=== PATIENT | male | born 1950 | race Native Hawaiian/Other Pacific Islander ===

== ENCOUNTER 2017-03-04 13:06 | Outpatient (CLI) | payer OTHER, MEDICARE ==
[2017-03-04 13:55] LABS: POTASSIUM 4.8 mmol/L (3.6-5.2); SODIUM 137 mmol/L (136-145)
== END 2017-03-04 14:10 | disposition home or self-care (01) ==
LOC: LAB 13:06
PROVIDERS: Internal Medicine
DX: I10 Essential (primary) hypertension (principal)
CPT/HCPCS: 80053; 80061

== ENCOUNTER 2017-09-01 09:42 | Outpatient (CLI) | payer OTHER, MEDICARE ==
[2017-09-01 09:49] LABS: PLATELET COUNT 233 K/uL (142-355)
[2017-09-01 10:12] LABS: POTASSIUM 4.3 mmol/L (3.6-5.2)
== END 2017-09-01 19:04 | disposition home or self-care (01) ==
LOC: LAB 09:42
PROVIDERS: Internal Medicine
DX: I10 Essential (primary) hypertension (principal); N40.0 Benign prostatic hyperplasia without lower urinary tract symptoms
CPT/HCPCS: 80053; 80061; 81000; 84153; 84443; 85027

== ENCOUNTER 2017-11-21 19:41 | Emergency (ER) | payer OTHER ==
[~2017-11-21] VITALS: Ht 182.9 cm; Wt 112.5 kg
[2017-11-21 19:44] VITALS: BP 182/76; TEMP 97.3
== END 2017-11-21 20:42 | disposition home or self-care (01) ==
LOC: ED 19:41
DX: S60.451A Superficial foreign body of left index finger, initial encounter (principal); W45.8XXA Other foreign body or object entering through skin, initial encounter; Y92.89 Other specified places as the place of occurrence of the external cause
CPT/HCPCS: 90471; 90715; 99283

== ENCOUNTER 2018-02-01 17:53 | Observation (INO) | payer OTHER, MEDICARE ==
[2018-02-01] VITALS (10 sets, daily range): BP systolic 123–157; BP diastolic 56–73; TEMP 98.1–99; Ht 182.9 cm; Wt 113.4 kg
[~2018-02-01] VITALS: Ht 182.9 cm; Wt 113.4 kg
[2018-02-01 18:26] LABS: PLATELET COUNT 209 K/uL (142-355)
[2018-02-01] MEDS ORDERED: TAMS0.4C PO (18:28)
[2018-02-01] MEDS ORDERED: CRESTOR20 MG PO (18:29)
[2018-02-01] MEDS ORDERED: BAYER ASPIRIN E81 MG PO (18:29)
[2018-02-01] MEDS ORDERED: METO50TA63 PO (18:30)
[2018-02-01 18:31] LABS: POTASSIUM 4.1 mmol/L (3.6-5.2)
[2018-02-02] VITALS (10 sets, daily range): BP systolic 119–157; BP diastolic 55–82; TEMP 97.6–98.2
[2018-02-02 04:53] LABS: PLATELET COUNT 195 K/uL (142-355)
[2018-02-02 05:14] LABS: POTASSIUM 3.8 mmol/L (3.6-5.2)
== END 2018-02-02 09:30 | disposition short-term general hospital (02) ==
LOC: ED 17:53 → ICU 19:15
PROVIDERS: ADMIT Internal Medicine
DX: I21.29 ST elevation (STEMI) myocardial infarction involving other sites (principal); R07.2 Precordial pain; I10 Essential (primary) hypertension; E78.4 Other hyperlipidemia; R53.1 Weakness; R61 Generalized hyperhidrosis; I25.10 Atherosclerotic heart disease of native coronary artery without angina pectoris; N40.0 Benign prostatic hyperplasia without lower urinary tract symptoms
CPT/HCPCS: 36415; 80053; 81000; 82550; 84484; 85027; 85610; 85730; 93005; 94760; 99220; 99284; G0378; J1650

== ENCOUNTER → 2018-02-02 | Outpatient (CLI) | payer OTHER, MEDICARE ==
[~2018-02-02] MED LIST: BAYER ASPIRIN E81 MG PO; CRESTOR20 MG PO; METO50TA63 PO; TAMS0.4C PO
== END | disposition short-term general hospital (02) ==
LOC: AMB 09:37
DX: I21.29 ST elevation (STEMI) myocardial infarction involving other sites (principal); R07.2 Precordial pain; I10 Essential (primary) hypertension; E78.4 Other hyperlipidemia; R53.1 Weakness; R61 Generalized hyperhidrosis; I25.10 Atherosclerotic heart disease of native coronary artery without angina pectoris; N40.0 Benign prostatic hyperplasia without lower urinary tract symptoms
CPT/HCPCS: A0425; A0427

== ENCOUNTER 2018-09-20 08:54 | Outpatient (CLI) | payer OTHER, MEDICARE ==
[2018-09-20 09:23] LABS: PLATELET COUNT 210 K/uL (142-355)
[2018-09-20 09:57] LABS: POTASSIUM 4.9 mmol/L (3.6-5.2)
== END 2018-09-20 19:39 | disposition home or self-care (01) ==
LOC: LABW 08:54
PROVIDERS: Internal Medicine
DX: I25.10 Atherosclerotic heart disease of native coronary artery without angina pectoris (principal); Z12.5 Encounter for screening for malignant neoplasm of prostate; Z79.899 Other long term (current) drug therapy
CPT/HCPCS: 36415; 80053; 80061; 81000; 83036; 84153; 84439; 84443; 85027

== ENCOUNTER 2019-10-03 11:54 | Outpatient (CLI) | payer OTHER, MEDICARE ==
[2019-10-03 12:22] LABS: PLATELET COUNT 203 K/uL (142-355)
[2019-10-03 13:03] LABS: POTASSIUM 4.2 mmol/L (3.6-5.2)
== END 2019-10-03 19:56 | disposition home or self-care (01) ==
LOC: LAB 11:54
PROVIDERS: Internal Medicine
DX: Z00.00 Encounter for general adult medical examination without abnormal findings (principal); I25.10 Atherosclerotic heart disease of native coronary artery without angina pectoris; Z79.899 Other long term (current) drug therapy; Z12.5 Encounter for screening for malignant neoplasm of prostate; N40.0 Benign prostatic hyperplasia without lower urinary tract symptoms
CPT/HCPCS: 80053; 80061; 81000; 84153; 84439; 84443; 84550; 85027

== ENCOUNTER 2020-02-01 16:23 | Outpatient (CLI) | payer OTHER, MEDICARE | END 2020-02-01 19:51 | disposition home or self-care (01) | LOC: RAD 16:23 | DX: M25.552 Pain in left hip (principal) ==

== ENCOUNTER 2020-07-04 10:35 | Outpatient (CLI) | payer OTHER | END 2020-07-04 23:40 | disposition home or self-care (01) | LOC: RAD 10:35 | PROVIDERS: ATTEND Internal Medicine | DX: M75.51 Bursitis of right shoulder (principal) ==

== ENCOUNTER 2020-08-20 08:37 | Outpatient (CLI) | payer OTHER, MEDICARE | END 2020-08-20 20:26 | disposition home or self-care (01) | LOC: MRI 08:37 | PROVIDERS: ATTEND Internal Medicine | DX: M47.22 Other spondylosis with radiculopathy, cervical region (principal) | CPT/HCPCS: 36415; 82565; 84520; A9576 ==

== ENCOUNTER 2020-10-04 14:03 | Outpatient (CLI) | payer OTHER, MEDICARE | END 2020-10-04 20:11 | disposition home or self-care (01) | LOC: LABW 14:03 | PROVIDERS: ATTEND Internal Medicine | DX: Z01.84 Encounter for antibody response examination (principal) | CPT/HCPCS: 36415; 86769 ==

== ENCOUNTER 2021-01-28 10:10 | Outpatient (CLI) | payer OTHER, MEDICARE ==
[2021-02-10 06:27] LABS: PLATELET COUNT 174 K/uL (142-355)
[2021-02-10 06:28] LABS: POTASSIUM 4.6 mmol/L (3.6-5.2)
== END 2021-01-28 13:00 | disposition home or self-care (01) ==
LOC: LAB 10:10
PROVIDERS: ATTEND Internal Medicine
DX: Z00.00 Encounter for general adult medical examination without abnormal findings (principal); Z12.5 Encounter for screening for malignant neoplasm of prostate; Z79.899 Other long term (current) drug therapy; N40.0 Benign prostatic hyperplasia without lower urinary tract symptoms
CPT/HCPCS: 80053; 80061; 81000; 84153; 84439; 84443; 85027

== ENCOUNTER 2021-02-15 11:08 | Outpatient (CLI) | payer OTHER, MEDICARE | END 2021-02-15 22:01 | disposition home or self-care (01) | LOC: US 11:08 | PROVIDERS: ATTEND Internal Medicine | DX: Z13.6 Encounter for screening for cardiovascular disorders (principal); Z12.2 Encounter for screening for malignant neoplasm of respiratory organs; Z87.891 Personal history of nicotine dependence ==

== ENCOUNTER 2021-10-17 07:46 | Outpatient (CLI) | payer OTHER, MEDICARE ==
[2021-10-17 08:18] LABS: PLATELET COUNT 211 K/uL (142-355)
[2021-10-17 08:26] LABS: POTASSIUM 4.2 mmol/L (3.6-5.2)
== END 2021-10-17 21:02 | disposition home or self-care (01) ==
LOC: LABW 07:46
PROVIDERS: ATTEND Internal Medicine
DX: I10 Essential (primary) hypertension (principal); N40.0 Benign prostatic hyperplasia without lower urinary tract symptoms
CPT/HCPCS: 36415; 80053; 80061; 81000; 84153; 84439; 84443; 85027

== ENCOUNTER 2022-05-01 13:34 | Outpatient (CLI) | payer OTHER, MEDICARE ==
[2022-05-01 13:54] LABS: PLATELET COUNT 182 K/uL (142-355)
[2022-05-01 14:14] LABS: POTASSIUM 4.5 mmol/L (3.6-5.2)
== END 2022-05-01 19:27 | disposition home or self-care (01) ==
LOC: LAB 13:34
PROVIDERS: ATTEND Internal Medicine
DX: Z00.00 Encounter for general adult medical examination without abnormal findings (principal); I10 Essential (primary) hypertension; Z12.5 Encounter for screening for malignant neoplasm of prostate; N40.0 Benign prostatic hyperplasia without lower urinary tract symptoms
CPT/HCPCS: 80053; 80061; 81002; 84153; 84439; 84443; 85027

== ENCOUNTER 2023-04-22 12:02 | Outpatient (CLI) | payer OTHER, MEDICARE ==
[2023-04-22 12:19] LABS: PLATELET COUNT 218 K/uL (142-355)
[2023-04-22 12:48] LABS: POTASSIUM 4.6 mmol/L (3.6-5.2)
== END 2023-04-22 19:18 | disposition home or self-care (01) ==
LOC: LAB 12:02
PROVIDERS: ATTEND Internal Medicine
DX: I25.10 Atherosclerotic heart disease of native coronary artery without angina pectoris (principal); N40.0 Benign prostatic hyperplasia without lower urinary tract symptoms; Z79.899 Other long term (current) drug therapy
CPT/HCPCS: 80053; 80061; 81002; 84153; 84439; 84443; 85027

== ENCOUNTER 2023-04-23 14:45 | Outpatient (CLI) | payer OTHER, MEDICARE | END 2023-04-23 18:53 | disposition home or self-care (01) | LOC: RAD 14:45 | PROVIDERS: ATTEND Internal Medicine | DX: S39.012A Strain of muscle, fascia and tendon of lower back, initial encounter (principal); Y92.89 Other specified places as the place of occurrence of the external cause ==